=== PATIENT | female | born 1935 | race Caucasian/White ===

== ENCOUNTER → 2017-03-05 | Outpatient (CLI) | payer MEDICARE, OTHER ==
[~2017-03-05] MED LIST: ALPR.25 PO; ALPR1 PO; AMLO5 PO; Benazepril HCl10 MG; CINA30 PO; CLOP75 PO; Calcium Acetat667 MG PO; Crestor40 MG; Fentanyl1 EAC4 TD; LIDO5TP TOP; MIDO5 PO; MULT50FEL PO; Midodrine HCl10 MG PO; NEBI5; OXYC10TA19 PO; OXYC1TAB11 PO; POTCHL10ER PO; Pantoprazole So40 MG PO; SPIR25 PO; TEMA15 PO
[2017-03-05 11:08] LABS: Bilirubin, Urine Neg (Neg); Blood, Urine 1+ (Neg); Glucose Qualitative, Urine Neg (Neg); Ketones, Urine Neg (Neg); Leukocyte Esterase, Urine Neg (Neg); Nitrite, Urine Neg (Neg); Protein, Urine 2+ (Neg); Specific Gravity, Urine 1.015 (1.003-1.022); Urobilinogen, Urine NORM (Normal)
[2017-03-05 11:19] LABS: Appearance, Urine Clear (Clear); Color, Urine Yellow (P-Yellow)
[2017-03-05 11:27] LABS: Red Blood Cells, Urine 0-2 /hpf (0-2); Squamous Epithelial Cells Few /hpf (Few); White Blood Cells, Urine 0-2 /hpf (0-5)
[2017-03-05 11:28] LABS: Bacteria Not Seen /hpf; Transitional Epithelial Cells Rare /hpf (0-Rare)
== END | disposition home or self-care (01) ==
LOC: LAB 08:00
PROVIDERS: Internal Medicine Nephrology
DX: N39.0 Urinary tract infection, site not specified (principal)
CPT/HCPCS: 81001; 87086

== ENCOUNTER 2017-05-29 05:12 | Emergency (ER) | payer MEDICARE, OTHER ==
[~2017-05-29] VITALS: Ht 162.6 cm; Wt 51.3 kg
[~2017-05-29 05:12] MED LIST changes: -ALPR.25 PO; -AMLO5 PO; -Benazepril HCl10 MG; -CINA30 PO; -Calcium Acetat667 MG PO; -Fentanyl1 EAC4 TD; -MIDO5 PO; -Midodrine HCl10 MG PO; -OXYC10TA19 PO; +OXYC1TAB11; -OXYC1TAB11 PO; -Pantoprazole So40 MG PO; -SPIR25 PO; +TEMA15; -TEMA15 PO
== END 2017-05-29 06:50 | disposition left against medical advice (07) ==
LOC: ER 05:12
DX: Z53.21 Procedure and treatment not carried out due to patient leaving prior to being seen by health care provider (principal)

== ENCOUNTER → 2017-06-10 | Outpatient (CLI) | payer MEDICARE, OTHER ==
[2017-06-10 11:50] LABS: Albumin, Blood 3.5 g/dL (3.4-5.0); Albumin/Globulin Ratio 1.1 (0.8-1.8); Bilirubin, Direct 0.1 mg/dL (0.0-0.3); Bilirubin, Indirect 0.6 mg/dL (0.1-0.7); Bilirubin, Total 0.7 mg/dL (0.1-1.0); Globulin, Blood 3.2 g/dL (2.2-4.0); Total Protein, Blood 6.7 g/dL (6.4-8.2)
== END ==
LOC: LAB SHORT 11:07 → LAB 11:07
PROVIDERS: Internal Medicine Nephrology
DX: R10.9 Unspecified abdominal pain (principal)
CPT/HCPCS: 80076; 82150; 83690

== ENCOUNTER 2017-08-14 20:12 | Inpatient (IN) | payer MEDICARE, OTHER ==
[~2017-08-14] VITALS: Ht 160 cm; Wt 50.8 kg
[~2017-08-14 20:12] MED LIST changes: -OXYC1TAB11; +OXYC1TAB11 PO; -TEMA15; +TEMA15 PO
[2017-08-14] MEDS ORDERED: Fentanyl1 EAC4 TD (21:22)
[2017-08-14] MEDS ORDERED: OXYC10TA19 PO (21:23)
[2017-08-14 22:35] LABS: BASOPHILS ABSOLUTE AUTO 0.05 K/mm3 (0.00-0.23); BASOPHILS PERCENT AUTO 1 % (0-2); EOSINOPHILS ABSOLUTE AUTO 0.01 K/mm3 (0.00-0.68); EOSINOPHILS PERCENT AUTO 0 % (0-6); Hematocrit 36.6 % (33.0-51.0); Hemoglobin 12.3 g/dL (11.5-16.0); IMMATURE GRAN ABSOLUTE AUTO 0.01 K/mm3 (0.00-0.10); IMMATURE GRAN PERCENT AUTO 0 % (0-1); LYMPHOCYTES ABSOLUTE AUTO 0.99 K/mm3 (0.84-5.20); LYMPHOCYTES PERCENT AUTO 17 % (21-46); MONOCYTES ABSOLUTE AUTO 0.25 K/mm3 (0.16-1.47); MONOCYTES PERCENT AUTO 4 % (4-13); Mean Corpuscular HGB 33.5 pg (26.0-34.0); Mean Corpuscular HGB Conc 33.6 g/dL (31.5-36.5); Mean Corpuscular Volume 100 fL (80-100); Mean Platelet Volume 10.1 fL (9.1-12.4); NEUTROPHILS ABSOLUTE AUTO 4.44 K/mm3 (1.96-9.15); NEUTROPHILS PERCENT AUTO 77 % (41-73); Platelet Count 148 K/mm3 (150-400); RDW Standard Deviation 47.9 fL (35.1-46.3); Red Blood Cell Count 3.67 M/mm3 (3.80-5.20); White Blood Cell Count 5.75 K/mm3 (4.00-11.30)
[2017-08-14] MEDS ORDERED: Benazepril HCl10 MG (22:37)
[2017-08-14 22:48] LABS: International Normalized Ratio 1.01; Prothrombin Time Results 10.4 Sec (9.7-11.5)
[2017-08-14 22:53] LABS: Albumin/Globulin Ratio 1.2 (0.8-1.8); Bilirubin, Total 1.1 mg/dL (0.1-1.0); Bun/Creatinine Ratio 5.5 (12.0-20.0); Calcium, Blood 8.5 mg/dL (8.5-10.1); Creatinine, Blood 3.47 mg/dL (0.40-1.00); Globulin, Blood 3.2 g/dL (2.2-4.0); Potassium, Blood 4.4 mmol/L (3.5-5.5); Total Protein, Blood 7.2 g/dL (6.4-8.2)
[2017-08-14] MEDS ORDERED: Pantoprazole So40 MG PO (23:54)
[2017-08-14] MEDS ORDERED: ALPR.25 PO (23:54)
[2017-08-14] MEDS ORDERED: Calcium Acetat667 MG PO (23:55)
[2017-08-15 01:55] LABS: Source, Urine Clean Catch
[2017-08-15 01:58] LABS: Bilirubin, Urine Neg (Neg); Blood, Urine Neg (Neg); Glucose Qualitative, Urine 1+ (Neg); Ketones, Urine 3+ (Neg); Leukocyte Esterase, Urine Neg (Neg); Nitrite, Urine Neg (Neg); Protein, Urine 2+ (Neg); Specific Gravity, Urine 1.015 (1.003-1.022); Urobilinogen, Urine NORM (Normal)
[2017-08-15 01:59] LABS: Appearance, Urine Clear (Clear); Color, Urine Yellow (P-Yellow)
[2017-08-15 02:05] LABS: Bacteria Not Seen /hpf; Red Blood Cells, Urine Not Seen /hpf (0-2); Squamous Epithelial Cells Few /hpf (Few); White Blood Cells, Urine 0-2 /hpf (0-5)
[2017-08-15 05:55] LABS: CHOL/HDL RATIO 8.9; Cholesterol 365 mg/dL (50-200); HDL Cholesterol 41 mg/dL (>39); LDL/HDL RATIO 7.4; Low Density Lipoprotein Chol 305 mg/dL (0-110); Triglycerides 96 mg/dL (30-160); Very Low Density Lipoprot Chol 19 mg/dL (6-32)
[2017-08-15] MEDS ORDERED: MIDO5 PO (17:14)
[2017-08-15] MEDS ORDERED: SPIR25 PO (17:17)
[2017-08-15] MEDS ORDERED: CINA30 PO (17:19)
[2017-08-16 05:08] LABS: BASOPHILS ABSOLUTE AUTO 0.04 K/mm3 (0.00-0.23); BASOPHILS PERCENT AUTO 1 % (0-2); EOSINOPHILS PERCENT AUTO 2 % (0-6); Hematocrit 31.7 % (33.0-51.0); Hemoglobin 10.5 g/dL (11.5-16.0); IMMATURE GRAN ABSOLUTE AUTO 0.01 K/mm3 (0.00-0.10); IMMATURE GRAN PERCENT AUTO 0 % (0-1); LYMPHOCYTES ABSOLUTE AUTO 2.35 K/mm3 (0.84-5.20); LYMPHOCYTES PERCENT AUTO 49 % (21-46); MONOCYTES ABSOLUTE AUTO 0.51 K/mm3 (0.16-1.47); MONOCYTES PERCENT AUTO 11 % (4-13); Mean Corpuscular HGB Conc 33.1 g/dL (31.5-36.5); Mean Corpuscular Volume 100 fL (80-100); Mean Platelet Volume 10.3 fL (9.1-12.4); NEUTROPHILS ABSOLUTE AUTO 1.79 K/mm3 (1.96-9.15); NEUTROPHILS PERCENT AUTO 37 % (41-73); Platelet Count 132 K/mm3 (150-400); RDW Coefficient Variation 13.1 % (11.7-14.2); RDW Standard Deviation 48.2 fL (35.1-46.3); Red Blood Cell Count 3.18 M/mm3 (3.80-5.20)
[2017-08-16 05:29] LABS: Alanine Aminotransfer (ALT/SGP 16 U/L (12-78); Albumin, Blood 3.5 g/dL (3.4-5.0); Albumin/Globulin Ratio 1.2 (0.8-1.8); Alk Phos 34 U/L (50-136); Anion Gap 6 mmol/L (6-16); Aspartate Aminotrans (AST/SGOT 21 U/L (12-37); Bilirubin, Total 1.1 mg/dL (0.1-1.0); Blood Urea Nitrogen 26 mg/dL (8-24); CO2, Blood 34 mmol/L (21-32); Calcium, Blood 8.1 mg/dL (8.5-10.1); Chloride, Blood 97 mmol/L (98-108); Creatinine, Blood 3.71 mg/dL (0.40-1.00); Glomerular Filtration Rate 12 (60-); Glucose, Blood 87 mg/dL (70-99); Magnesium, Blood 2.2 mg/dL (1.6-2.4); Phosphorus, Blood 2.9 mg/dL (2.5-4.9); Potassium, Blood 3.5 mmol/L (3.5-5.5); Sodium, Blood 137 mmol/L (136-145); Total Protein, Blood 6.5 g/dL (6.4-8.2)
[2017-08-16] MEDS ORDERED: AMLO5 PO (12:53)
== END 2017-08-16 13:15 | disposition home or self-care (01) | DRG 69 ==
LOC: ER 20:12 → MEDS 08-15 00:05 → ENPENDDIS 08-16 12:04 → MEDS 08-16 13:15
PROVIDERS: Emergency Medicine; Hospitalist; Internal Medicine
PROC: 5A1D70Z Performance of Urinary Filtration, Intermittent, Less than 6 Hours Per Day (ICD-10-PCS; principal; 2017-08-15)
DX: G45.9 Transient cerebral ischemic attack, unspecified (principal); N18.6 End stage renal disease; G81.94 Hemiplegia, unspecified affecting left nondominant side; R47.01 Aphasia; I12.0 Hypertensive chronic kidney disease with stage 5 chronic kidney disease or end stage renal disease; Z66 Do not resuscitate; R47.1 Dysarthria and anarthria; Z95.828 Presence of other vascular implants and grafts; I65.23 Occlusion and stenosis of bilateral carotid arteries; I51.89 Other ill-defined heart diseases; E86.9 Volume depletion, unspecified; I95.9 Hypotension, unspecified; R20.0 Anesthesia of skin; R53.1 Weakness; E78.5 Hyperlipidemia, unspecified; D63.1 Anemia in chronic kidney disease; R40.2362 Coma scale, best motor response, obeys commands, at arrival to emergency department; R40.2252 Coma scale, best verbal response, oriented, at arrival to emergency department; R40.2142 Coma scale, eyes open, spontaneous, at arrival to emergency department; R40.2412 Glasgow coma scale score 13-15, at arrival to emergency department; Z99.2 Dependence on renal dialysis; Z79.899 Other long term (current) drug therapy
CPT/HCPCS: 36415; 70450; 71046; 80053; 80061; 81001; 83735; 84100; 84132; 85025; 85610; 92610; 93005; 93010; 93306; 93880; 99285; G8996; G8997; G8998; J1650

== ENCOUNTER → 2017-09-04 | Outpatient (CLI) | payer MEDICARE, OTHER ==
[~2017-09-04] MED LIST changes: +ALPR.25 PO; +AMLO5 PO; +Benazepril HCl10 MG; +CINA30 PO; +Calcium Acetat667 MG PO; +Fentanyl1 EAC4 TD; +MIDO5 PO; +OXYC10TA19 PO; +Pantoprazole So40 MG PO; +SPIR25 PO
[2017-09-04 10:36] LABS: BASOPHILS ABSOLUTE AUTO 0.03 K/mm3 (0.00-0.23); BASOPHILS PERCENT AUTO 1 % (0-2); EOSINOPHILS PERCENT AUTO 5 % (0-6); Hematocrit 29.8 % (33.0-51.0); IMMATURE GRAN PERCENT AUTO 0 % (0-1); LYMPHOCYTES PERCENT AUTO 30 % (21-46); MONOCYTES ABSOLUTE AUTO 0.47 K/mm3 (0.16-1.47); MONOCYTES PERCENT AUTO 11 % (4-13); Mean Corpuscular HGB 33.4 pg (26.0-34.0); Mean Corpuscular HGB Conc 33.6 g/dL (31.5-36.5); Mean Corpuscular Volume 100 fL (80-100); Mean Platelet Volume 9.6 fL (9.1-12.4); NEUTROPHILS ABSOLUTE AUTO 2.37 K/mm3 (1.96-9.15); NEUTROPHILS PERCENT AUTO 54 % (41-73); Platelet Count 184 K/mm3 (150-400); RDW Standard Deviation 50.8 fL (35.1-46.3); Red Blood Cell Count 2.99 M/mm3 (3.80-5.20); White Blood Cell Count 4.37 K/mm3 (4.00-11.30)
== END | disposition home or self-care (01) ==
LOC: LAB SHORT 10:14 → LAB 10:14
PROVIDERS: Internal Medicine Nephrology
DX: D64.9 Anemia, unspecified (principal)
CPT/HCPCS: 85025

== ENCOUNTER 2018-04-03 12:01 | Emergency (ER) | payer MEDICARE, OTHER ==
[~2018-04-03] VITALS: Ht 160 cm; Wt 58.5 kg
[~2018-04-03 12:01] MED LIST changes: +Midodrine HCl10 MG PO
[2018-04-04] MEDS ORDERED: PREG75 PO (11:27)
[2018-04-04] MEDS ORDERED: ALUM320SU (11:27)
== END 2018-04-03 12:54 | disposition left against medical advice (07) ==
LOC: ER 12:01
DX: Z53.21 Procedure and treatment not carried out due to patient leaving prior to being seen by health care provider (principal)
CPT/HCPCS: 99281

== ENCOUNTER 2018-04-04 11:08 | Emergency (ER) | payer MEDICARE, OTHER ==
[~2018-04-04] VITALS: Ht 160 cm; Wt 57.1 kg
[2018-04-04] MEDS ORDERED: ALUM320SU (11:27)
[2018-04-04] MEDS ORDERED: PREG75 PO (11:27)
[2018-04-04 12:11] LABS: BASOPHILS ABSOLUTE AUTO 0.06 K/mm3 (0.00-0.23); BASOPHILS PERCENT AUTO 1 % (0-2); EOSINOPHILS ABSOLUTE AUTO 0.02 K/mm3 (0.00-0.68); EOSINOPHILS PERCENT AUTO 0 % (0-6); Hematocrit 38.6 % (33.0-51.0); Hemoglobin 12.7 g/dL (11.5-16.0); IMMATURE GRAN ABSOLUTE AUTO 0.06 K/mm3 (0.00-0.10); IMMATURE GRAN PERCENT AUTO 1 % (0-1); LYMPHOCYTES ABSOLUTE AUTO 0.64 K/mm3 (0.84-5.20); LYMPHOCYTES PERCENT AUTO 6 % (21-46); MONOCYTES PERCENT AUTO 9 % (4-13); Mean Corpuscular HGB 32.5 pg (26.0-34.0); Mean Corpuscular HGB Conc 32.9 g/dL (31.5-36.5); Mean Corpuscular Volume 99 fL (80-100); Mean Platelet Volume 9.7 fL (9.1-12.4); NEUTROPHILS PERCENT AUTO 83 % (41-73); Platelet Count 338 K/mm3 (150-400); RDW Coefficient Variation 14.6 % (11.7-14.2); RDW Standard Deviation 52.7 fL (35.1-46.3); Red Blood Cell Count 3.91 M/mm3 (3.80-5.20); White Blood Cell Count 9.98 K/mm3 (4.00-11.30)
[2018-04-04 12:39] LABS: Albumin, Blood 3.7 g/dL (3.4-5.0); Albumin/Globulin Ratio 0.8 (0.8-1.8); Bilirubin, Total 1.2 mg/dL (0.1-1.0); Bun/Creatinine Ratio 4.7 (12.0-20.0); Calcium, Blood 8.9 mg/dL (8.5-10.1); Creatinine, Blood 2.74 mg/dL (0.40-1.00); Globulin, Blood 4.8 g/dL (2.2-4.0); Potassium, Blood 4.2 mmol/L (3.5-5.5); Total Protein, Blood 8.5 g/dL (6.4-8.2)
== END 2018-04-04 14:35 | disposition home or self-care (01) ==
LOC: ER 11:08
PROVIDERS: Emergency Medicine
DX: R42 Dizziness and giddiness (principal); I12.9 Hypertensive chronic kidney disease with stage 1 through stage 4 chronic kidney disease, or unspecified chronic kidney disease; N18.9 Chronic kidney disease, unspecified; D63.1 Anemia in chronic kidney disease; Z88.5 Allergy status to narcotic agent; Z88.8 Allergy status to other drugs, medicaments and biological substances; Z79.899 Other long term (current) drug therapy; Z79.02 Long term (current) use of antithrombotics/antiplatelets; Z99.2 Dependence on renal dialysis
CPT/HCPCS: 36415; 71046; 80053; 84484; 85025; 93005; 93010; 96360; 99284-25; J7030

== ENCOUNTER 2018-05-06 10:36 | Emergency (ER) | payer MEDICARE, OTHER ==
[~2018-05-06] VITALS: Ht 160 cm; Wt 56.7 kg
[~2018-05-06 10:36] MED LIST changes: +ALUM320SU PO; +PREG75 PO
[2018-05-06] MEDS ORDERED: Roxicodone5 MG PO (12:01)
[2018-05-06 12:05] LABS: Calcium, Ionized (POC) 0.97 mmol/L (1.10-1.46); Chloride (POC) 89 mmol/L (98-108); Creatinine (POC) 5.6 mg/dL (0.6-1.0); Glucose (ISTAT POC) 95 mg/dL (70-99); Hemoglobin (POC) 13.3 g/dL (12.0-16.0); Potassium (POC) 4.2 mmol/L (3.5-5.5); Sodium (POC) 134 mmol/L (135-148); Total CO2 (POC) 35 mmol/L (21-32)
== END 2018-05-06 12:30 | disposition home or self-care (01) ==
LOC: ER 10:36
PROVIDERS: Emergency Medicine
DX: S32.019A Unspecified fracture of first lumbar vertebra, initial encounter for closed fracture (principal); S32.049D Unspecified fracture of fourth lumbar vertebra, subsequent encounter for fracture with routine healing; I12.0 Hypertensive chronic kidney disease with stage 5 chronic kidney disease or end stage renal disease; N18.6 End stage renal disease; W19.XXXA Unspecified fall, initial encounter; Z88.5 Allergy status to narcotic agent; Z88.6 Allergy status to analgesic agent; Z88.8 Allergy status to other drugs, medicaments and biological substances; Z79.899 Other long term (current) drug therapy
CPT/HCPCS: 36415; 72100; 80047; 85014; 93005; 93010; 99284-25

== ENCOUNTER 2018-05-08 15:35 | Observation (INO) | payer MEDICARE, OTHER ==
[~2018-05-08] VITALS: Ht 160 cm; Wt 55.9 kg
[~2018-05-08 15:35] MED LIST changes: +Roxicodone5 MG PO
[2018-05-08 17:15] LABS: BASOPHILS ABSOLUTE AUTO 0.06 K/mm3 (0.00-0.23); BASOPHILS PERCENT AUTO 1 % (0-2); EOSINOPHILS ABSOLUTE AUTO 0.25 K/mm3 (0.00-0.68); EOSINOPHILS PERCENT AUTO 4 % (0-6); Hemoglobin 12.2 g/dL (11.5-16.0); IMMATURE GRAN ABSOLUTE AUTO 0.02 K/mm3 (0.00-0.10); IMMATURE GRAN PERCENT AUTO 0 % (0-1); LYMPHOCYTES ABSOLUTE AUTO 2.12 K/mm3 (0.84-5.20); LYMPHOCYTES PERCENT AUTO 31 % (21-46); MONOCYTES ABSOLUTE AUTO 0.79 K/mm3 (0.16-1.47); MONOCYTES PERCENT AUTO 12 % (4-13); Mean Corpuscular HGB 33.2 pg (26.0-34.0); Mean Corpuscular HGB Conc 32.1 g/dL (31.5-36.5); Mean Corpuscular Volume 104 fL (80-100); NEUTROPHILS PERCENT AUTO 53 % (41-73); Platelet Count 251 K/mm3 (150-400); RDW Coefficient Variation 13.9 % (11.7-14.2); RDW Standard Deviation 53.8 fL (35.1-46.3); Red Blood Cell Count 3.67 M/mm3 (3.80-5.20); White Blood Cell Count 6.84 K/mm3 (4.00-11.30)
[2018-05-08 17:39] LABS: Troponin I <0.015 ng/mL (0.000-0.040)
[2018-05-08 17:41] LABS: Alanine Aminotransfer (ALT/SGP 28 U/L (12-78); Albumin, Blood 3.4 g/dL (3.4-5.0); Albumin/Globulin Ratio 0.8 (0.8-1.8); Alk Phos 72 U/L (50-136); Anion Gap 11 mmol/L (6-16); Aspartate Aminotrans (AST/SGOT 35 U/L (12-37); Bilirubin, Total 0.7 mg/dL (0.1-1.0); Blood Urea Nitrogen 47 mg/dL (8-24); Bun/Creatinine Ratio 5.1 (12.0-20.0); CO2, Blood 27 mmol/L (21-32); Calcium, Blood 8.8 mg/dL (8.5-10.1); Chloride, Blood 89 mmol/L (98-108); Creatinine, Blood 9.18 mg/dL (0.40-1.00); Globulin, Blood 4.3 g/dL (2.2-4.0); Glomerular Filtration Rate 4 (60-); Glucose, Blood 84 mg/dL (70-99); Potassium, Blood 4.4 mmol/L (3.5-5.5); Sodium, Blood 127 mmol/L (136-145); Total Protein, Blood 7.7 g/dL (6.4-8.2)
[2018-05-08] MEDS ORDERED: OXYC10TA19 PO (18:34)
[2018-05-08] MEDS ORDERED: GABA300 PO (18:36)
[2018-05-08] MEDS ORDERED: PANT40 PO (18:36)
[2018-05-08] MEDS ORDERED: MECL12.5 PO (18:37)
[2018-05-08] MEDS ORDERED: ALPR.25 PO (18:38)
[2018-05-08] MEDS ORDERED: ACET325 PO (18:38)
[2018-05-08] MEDS ORDERED: ZINC220 PO (18:39)
[2018-05-08] MEDS ORDERED: MERIBIN5 MG PO (18:39)
[2018-05-08] MEDS ORDERED: TEMA15 PO (18:42)
[2018-05-08] MEDS ORDERED: Amlodipine Bes2.5 MG PO (18:46)
[2018-05-08] MEDS ORDERED: LIDO700A20 TOP (18:47)
[2018-05-08] MEDS ORDERED: CINA30 PO (18:47)
--- NOTE | 2018-05-09 04:01 | NUR ---
SHIFT SUMMARY PT NEW ED ADMIT THIS EVENING. PLEASANTLY CONFUSED, APPEARING WORSE AFTER MEDICATED W/ MORPHINE. PT COMPLAINING OF BACK PAIN. PT HAS CHRONIC BACK PN BUT HAD A FALL SEVERAL DAYS AGO AND HER BACK PN HAS BEEN MUCH MORE SEVERE AND UNCONTROLLED BY HOME PAIN MEDICATION. PT REPORTS SHE IS UNABLE TO AMBULATE AT THIS TIME. REMAINED IN BED THROUGHOUT THE SHIFT. BEDPAN USED X 1 IN WHICH PT WAS ABLE TO VOID A SMALL AMOUNT. THIS IS NORMAL FOR PT SHE IS A DIALYSIS PT. PT REPORTS SHE HAS BEEN TOO WEAK TO GO TO DIALYSIS. FISTULA IN RIGHT ARM, GOOD THRILL AND BRUIT. SLEEPING AT THIS TIME. VSS. WILL CONTINUE TO MONITOR AND REPORT TO DAY RN.
[2018-05-09 05:25] LABS: Hematocrit 33.7 % (33.0-51.0); Hemoglobin 11.1 g/dL (11.5-16.0)
[2018-05-09 05:58] LABS: Magnesium, Blood 2.7 mg/dL (1.6-2.4)
[2018-05-09 06:11] LABS: Albumin, Blood 3.3 g/dL (3.4-5.0); Anion Gap 15 mmol/L (6-16); Blood Urea Nitrogen 51 mg/dL (8-24); CO2, Blood 28 mmol/L (21-32); Calcium, Blood 8.8 mg/dL (8.5-10.1); Chloride, Blood 88 mmol/L (98-108); Glucose, Blood 76 mg/dL (70-99); Phosphorus, Blood 5.5 mg/dL (2.5-4.9); Potassium, Blood 4.8 mmol/L (3.5-5.5); Sodium, Blood 131 mmol/L (136-145)
[2018-05-09 06:13] LABS: Bun/Creatinine Ratio 5.1 (12.0-20.0); Glomerular Filtration Rate 4 (60-)
[2018-05-09 15:31] LABS: Source, Urine Voided
[2018-05-09 15:52] LABS: Appearance, Urine Clear (Clear); Bilirubin, Urine Neg (Neg); Blood, Urine 1+ (Neg); Color, Urine Yellow (P-Yellow); Glucose Qualitative, Urine 2+ (Neg); Ketones, Urine 2+ (Neg); Leukocyte Esterase, Urine Neg (Neg); Nitrite, Urine Neg (Neg); Protein, Urine 2+ (Neg); Specific Gravity, Urine 1.015 (1.003-1.022); Urobilinogen, Urine NORM (Normal)
[2018-05-09 16:05] LABS: Bacteria Not Seen /hpf; Red Blood Cells, Urine 0-2 /hpf (0-2); Squamous Epithelial Cells Few /hpf (Few); White Blood Cells, Urine 0-2 /hpf (0-5)
--- NOTE | 2018-05-09 18:34 | NUR ---
PT IS CONFUSED. HER AND DAUGHTER WERE AT HER BEDSIDE FOR MOST OF THE DAY. AFTER THEY LEFT, SHE BEGAN TO TRY TO GET OUT OF BED. BED ALARM ON. SHE COMPLAINED OF SEVERE BACK TODAY, MEDICATED PER EMAR. LIDOCAINE PATCH IN PLACE. SHE HAS HAD A POOR APPETITE TODAY, EATING A SMALL AMOUNT OF LUNCH AND DINNER. SHE WAS PLACED ON THE BEDPAN TWICE TODAY WITH NO BM OR URINE, WHEN PLACED ON THE BSC SHE VOIDED 100 ML. SHE HAD DIALYSIS TODAY. NO ACUTE CHANGES TODAY, WILL CONTINUE TO MONITOR.
--- NOTE | 2018-05-10 05:50 | NUR ---
SHIFT SUMMARY PT REMAINS PLEASANTLY CONFUSED. UP TO BSC X 1, VOIDING 100 ML. SLEPT THROUGH MOST OF THE NIGHT. NO S/S OF PAIN UNLESS TURNING PT OR PT ATTEMPTING TO GET UP. LONG PT WAS LYING IN BED SHE DID NOT APPEAR TO BE IN ANY PAIN, AND SLEPT A LOT SO NO PAIN MEDICATIONS GIVEN THIS EVENING. VSS. NO ACUTE CHANGES. WILL CONTINUE TO MONITOR AND REPORT TO DAY RN.
[2018-05-10 08:03] LABS: Albumin, Blood 3.2 g/dL (3.4-5.0); Anion Gap 10 mmol/L (6-16); Blood Urea Nitrogen 35 mg/dL (8-24); Bun/Creatinine Ratio 5.1 (12.0-20.0); CO2, Blood 32 mmol/L (21-32); Calcium, Blood 9.9 mg/dL (8.5-10.1); Chloride, Blood 93 mmol/L (98-108); Creatinine, Blood 6.92 mg/dL (0.40-1.00); Glomerular Filtration Rate 6 (60-); Glucose, Blood 98 mg/dL (70-99); Magnesium, Blood 2.7 mg/dL (1.6-2.4); Phosphorus, Blood 4.4 mg/dL (2.5-4.9); Potassium, Blood 4.4 mmol/L (3.5-5.5); Sodium, Blood 135 mmol/L (136-145)
--- NOTE | 2018-05-10 11:12 | NUR ---
PT IS CONFUSED. SHE DOES NOT KNOW THE DATE, TIME, OR PLACE. SHE IS ORIENTED TO HER . HE IS SLEEPY/AROUSEABLE. SHE COMPLAINS OF BACK PAIN WITH MOVEMENT, TREATED PER EMAR WITH ROXICODONE. PT ATE A WHOLE OMLET THIS MORNING WHICH REALLY IMPRESSED HER . SHE IS OFTEN WAKING UP AND ASKING FOR SIPS OF PEPSI. WILL CONTINUE TO MONITOR.
--- NOTE | 2018-05-10 17:08 | NUR ---
PT IS CONFUSED. SHE HAS BEEN SLEEPING MOST OF THE DAY. HER DAUGHTER AND SPOUSE WERE AT THE BEDSIDE MOST OF THE DAY, SHE IS ORIENTED TO THEM. SHE COMPLAINS OF BACK PAIN WITH MOVEMENT. WE GOT HER UP TO THE [facility] TO VOID WITH A GAIT BELT AND WALKER. SHE WORKED WITH PHYSICAL THERAPY TODAY. PAIN MANAGED PER EMAR. WILL CONTINUE TO MONITOR.
--- NOTE | 2018-05-11 04:09 | NUR ---
SHIFT SUMMARY NO ACUTE CHANGES THIS SHIFT. PT REMAINS PLEASANTLY CONFUSED. SLEPT THROUGH MUCH OF THE NIGHT. UP TO VOID X 1 THIS SHIFT. NOT ABNORMAL FOR PT DUE TO PT BEING ON CHRONIC DIALYSIS. FISTULA TO NICHO. PT PAINFUL W/ MOVEMENT BUT OTHERWISE PT APPEARED COMFORTABLE AND SLEEPY. PT NOT MEDICATED FOR PAIN THIS EVENING. VSS. RESTING IN BED AT THIS TIME. WILL CONTINUE TO MONITOR AND REPORT TO DAY RN.
[2018-05-11 05:25] LABS: Hematocrit 34.3 % (33.0-51.0)
[2018-05-11 05:57] LABS: Magnesium, Blood 2.6 mg/dL (1.6-2.4)
[2018-05-11 06:10] LABS: Albumin, Blood 3.3 g/dL (3.4-5.0); Anion Gap 11 mmol/L (6-16); Blood Urea Nitrogen 43 mg/dL (8-24); Bun/Creatinine Ratio 5.2 (12.0-20.0); CO2, Blood 31 mmol/L (21-32); Calcium, Blood 10.9 mg/dL (8.5-10.1); Chloride, Blood 90 mmol/L (98-108); Creatinine, Blood 8.28 mg/dL (0.40-1.00); Glomerular Filtration Rate 5 (60-); Glucose, Blood 88 mg/dL (70-99); Phosphorus, Blood 4.3 mg/dL (2.5-4.9); Potassium, Blood 4.3 mmol/L (3.5-5.5); Sodium, Blood 132 mmol/L (136-145)
[2018-05-12 05:17] LABS: Hemoglobin 11.6 g/dL (11.5-16.0)
[2018-05-12 05:43] LABS: Magnesium, Blood 2.7 mg/dL (1.6-2.4)
[2018-05-12 05:56] LABS: Albumin, Blood 3.5 g/dL (3.4-5.0); Anion Gap 12 mmol/L (6-16); Blood Urea Nitrogen 53 mg/dL (8-24); Bun/Creatinine Ratio 5.3 (12.0-20.0); CO2, Blood 29 mmol/L (21-32); Calcium, Blood 10.8 mg/dL (8.5-10.1); Chloride, Blood 89 mmol/L (98-108); Creatinine, Blood 9.91 mg/dL (0.40-1.00); Glomerular Filtration Rate 4 (60-); Glucose, Blood 95 mg/dL (70-99); Phosphorus, Blood 5.2 mg/dL (2.5-4.9); Potassium, Blood 4.6 mmol/L (3.5-5.5); Sodium, Blood 130 mmol/L (136-145)
--- NOTE | 2018-05-12 07:42 | NUR ---
05/12/18 0630 AWAKE AND CONFUSED ALL SHIFT. OCC. YELLS FOR "HELP". VIALS STABLE THIS AM. MEDICATED ONCE FOR PAIN AND THEN SLEPT ON AND OFF. REPOSITIONED SIDE TO SIDE BUT SHE OCC. TURNS SELF TO BACK.
--- NOTE | 2018-05-12 09:05 | NUR ---
PT TRANSPORTED TO DIALYSIS VIA BED
--- NOTE | 2018-05-12 12:01 | NUR ---
1140 - FL[facility]HER called after patient became nonresponsive nearing the completion of her dialysis treatment. Dr Tanmay Garcia notified, no new orders. Family at the bedside.
--- NOTE | 2018-05-12 12:27 | NUR ---
I responded to rapid response called in dialysis. My role was supportive to the who, wanted to make sure all staff knew that pt did not want to have any form of rescusitation effort performed on her. Pt had been mostly done with dialysis when her BP dropped and she could not be roused. Dr Garcia met with pt's and daughter and they expressed pt's previously stated wishes and their thoughts on goals and plans for going forward. At this time, d/c and transfer to [facility] on hold for today. Skyler and expressed the family conversations about discontinuing dialysis prior to this event because the gurney transport 3xw to the dialysis unit seemed intolerable and was not something Radha wanted to continue in her current very poor state of health. requested Hospice consult to meet with family and discuss hospice care and options. He is planning on discussing this further with July when she wakes up a little more. Towards the end of visit pt started to rouse a little more with movements of hands and face but she never woke up enough to be responsive. Order for hospice consult placed and vm left for healthcare social worker re: events of today and request from Dr. Machado also present with family t/o rapid response. I also case conferenced with her. Pt did not exhibit any nonverbal indicators of pain, agitation or distress. Initially her respirations were very shallow and slow. As her unresponsiveness lightened, pt's respirations became more deep and full with increased respiratory rate. At no time did pt appear to be in respiratory distress. Her understood that if she did not wake up she would not survive, in light of her wishes for no intervention. [facility] to follow for support and s/s managment as indicated and advanced care planning conversations. We attempted to see pt yesterday to complete a POLST per pt's request but when nurse came to room, she was asleep and nurse did not wake her to do the POLST.
--- NOTE | 2018-05-12 12:30 | NUR ---
PT RETURNED FROM DIALYSIS VIA BED AFTER EXPERIENCING A RAPID RESPONSE. SHE IS NON RESPONSIVE AT THIS TIME. WILL CONTINE TO MONITOR.
--- NOTE | 2018-05-12 18:20 | NUR ---
Present through rapid response for Mrs. Ivan this morning. Stayed with spouse, and dtr providing calm presence and assurance of care. This is a non-uatsdin family. Later, I met with Radha at bedside on medical floor. She appears frail, but awake. Somewhat garbled speech, but clearly responded "Yes she is" when I complimented her on her dtr's strength. Mrs. Ivan appears relaxed and comfortable. She denied pain or fears. I will remain available to pt and family.
--- NOTE | 2018-05-12 19:16 | NUR ---
PT TO DIALYSIS THIS MORNING, RAPID RESPONSE WHILE IN DIALYSIS, RETURNED TO ROOM AND WAS NON RESPONSIVE. PT REMAINED NON RESPONSIVE UNTIL APPROX 1730 WHEN SHE WOKE UP AND WAS TALKING. PT WAS STILL CONFUSED. WILL CONTINUE TO MONITOR AND REPORT TO ONCOMING RN
--- NOTE | 2018-05-13 07:26 | NUR ---
05/13/18 0640 REPOSITIONED IN BED. DENIES ANY DISCOMFORT. MEDS TAKEN WITH ENSURE CLEAR. VITALS STABLE. PLEASANTLY CONFUSED. HAS TO BE ENCOURAGED TO DRINK FLUIDS.
--- NOTE | 2018-05-13 08:07 | NUR ---
HYPOTENSION PT'S BLOOD PRESSURE 83/[address] ADITYA FOREMAN IN TO SEE PT AND THIS RN DISCUSSED PT'S BLOOD PRESSURE WITH HIM. NO NEW ORDERS AT THIS TIME. WILL CONTINUE TO MONITOR.
[2018-05-13] MEDS ORDERED: MORP20L PO (10:16)
--- NOTE | 2018-05-13 11:42 | NUR ---
DISCHARGE PT DISCHARGED TO [facility] VIA [facility]. REPORT GIVEN TO RN AT [facility]. PT'S BELONGINGS WITH AND [facility]. IV REMOVED WITHOUT DIFFICULTY.
== END 2018-05-13 10:55 | disposition hospice, home (50) ==
LOC: ER 15:35 → MEDS 15:36 → ER 18:31 → MEDS 18:31
PROVIDERS: Emergency Medicine; Internal Medicine; Internal Medicine Nephrology; ADMIT Nurse Practitioner Acute Care
DX: S32.019A Unspecified fracture of first lumbar vertebra, initial encounter for closed fracture (principal); I12.0 Hypertensive chronic kidney disease with stage 5 chronic kidney disease or end stage renal disease; N18.6 End stage renal disease; D63.1 Anemia in chronic kidney disease; K59.09 Other constipation; F11.20 Opioid dependence, uncomplicated; M19.90 Unspecified osteoarthritis, unspecified site; M81.0 Age-related osteoporosis without current pathological fracture; E86.9 Volume depletion, unspecified; E87.1 Hypo-osmolality and hyponatremia; E83.41 Hypermagnesemia; E78.5 Hyperlipidemia, unspecified; I73.9 Peripheral vascular disease, unspecified; R62.7 Adult failure to thrive; F41.1 Generalized anxiety disorder; Z99.2 Dependence on renal dialysis; Z79.899 Other long term (current) drug therapy; Z79.02 Long term (current) use of antithrombotics/antiplatelets; Z88.5 Allergy status to narcotic agent; Z88.8 Allergy status to other drugs, medicaments and biological substances; W19.XXXA Unspecified fall, initial encounter; Y92.099 Unspecified place in other non-institutional residence as the place of occurrence of the external cause
CPT/HCPCS: 36415; 36416; 72131; 80048; 80053; 80069; 81001; 82306; 83735; 84484; 85014; 85018; 85025; 92950; 93005; 93010; 96372; 96374; 96375; 97162; 97166; 97530; 99285-25; G0257; G0378; J1644; J2270; J2405